=== PATIENT | female | born 1975 | race Caucasian/White ===

== ENCOUNTER 2017-09-30 07:32 | Emergency (ER) | payer OTHER ==
[~2017-09-30] VITALS: Ht 165.1 cm; Wt 140.6 kg
[2017-09-30] MEDS ORDERED: LEVO25TA9 PO (07:42)
[2017-09-30] MEDS ORDERED: CITA10TA9 PO (07:42)
[2017-09-30] MEDS ORDERED: IBUPROFEN 800 MG TABLET PO ONE (08:00)
[2017-09-30] MEDS ORDERED: NEOMY/BACITRA/POLYMYXIN B OINT UD PACKET TP ONE ×2 (08:00→08:14)
[2017-09-30] MEDS ORDERED: IBUPROFEN 800 MG TABLET ONE (08:14)
--- NOTE | 2017-09-30 08:57 | NUR ---
MSE COMPLETED, WOUNDS/ABRASIONS CLEANED /BANDAGED AND TRIPLE ANTIBIOTIC PLACED. PT WAS THEN D/C'D HOME,ACI COMPLETED. PT AMBULATED W/O DIFF/TOOK ALL BELONGINGS.
[2017-09-30 08:59] VITALS: BP 128/74
== END 2017-09-30 09:01 | disposition home or self-care (01) ==
LOC: ER 07:32
DX: S13.4XXA Sprain of ligaments of cervical spine, initial encounter (principal); S39.012A Strain of muscle, fascia and tendon of lower back, initial encounter; S06.0X0A Concussion without loss of consciousness, initial encounter; S10.93XA Contusion of unspecified part of neck, initial encounter; S50.812A Abrasion of left forearm, initial encounter; S50.811A Abrasion of right forearm, initial encounter; E03.9 Hypothyroidism, unspecified; V43.52XA Car driver injured in collision with other type car in traffic accident, initial encounter; Y92.410 Unspecified street and highway as the place of occurrence of the external cause; Y93.89 Activity, other specified; Y99.8 Other external cause status
CPT/HCPCS: 71045; 72125; 72131; 73090 ×2; 73130; 93005; 99284; A4663